=== PATIENT | female | born 1980 | race African-American/Black ===

== ENCOUNTER 2024-07-07 16:40 | Emergency (ER) | payer MEDICAID ==
[2024-07-07 20:20] VITALS: BP 126/78; PULSE 74; RESP 13; TEMP 98.2; O2SAT 100
[2024-07-07] MEDS ORDERED: HYDR-3682 PO (20:24)
[2024-07-07] MEDS ORDERED: IBUP-1455 PO (20:24)
[2024-07-07] MEDS: ACETAMINOPHEN 500 MG TAB PO ONE (20:26)
== END 2024-07-07 20:35 | disposition home or self-care (01) ==
LOC: ER 16:40
DX: S00.83XA Contusion of other part of head, initial encounter (principal); G47.00 Insomnia, unspecified; E66.01 Morbid (severe) obesity due to excess calories; Z98.890 Other specified postprocedural states; W18.09XA Striking against other object with subsequent fall, initial encounter; Y93.89 Activity, other specified; Y92.098 Other place in other non-institutional residence as the place of occurrence of the external cause; Y99.8 Other external cause status
CPT/HCPCS: 70140